=== PATIENT | male | born 1945 | race Hispanic/Latino ===

== ENCOUNTER 2016-05-12 11:10 | Outpatient (CLI) | payer MEDICARE ==
--- NOTE | 2016-05-12 14:40 | Ultrasound Report ---
RIGHT UPPER QUADRANT ULTRASOUND: HISTORY: . Technique: Transabdominal ultrasound imaging with Doppler interrogation. FINDINGS: The liver is normal size and contour. A bilobed cyst in the left hepatic lobe measures 2.4 x 1.5 x 1.3 cm. A second left hepatic lobe cyst measures 1.2 cm. A third right hepatic lobe cyst measures 1 cm. These findings appear unchanged since the MR abdomen dated 10/15/15. The gallbladder is sonolucent with no evidence of stones, polyps or wall thickening. The common duct is normal in caliber. Images of the pancreas, right kidney and aorta are within normal limits. No perihepatic ascites. IMPRESSION: 3 liver cysts are identified as outlined above which are unchanged since the previous MR abdomen dated 10/15/15.
== END 2016-05-12 11:11 | disposition home or self-care (01) ==
LOC: US 11:10
PROVIDERS: ATTEND Internal Medicine Gastroenterology
DX: K76.89 Other specified diseases of liver (principal)
CPT/HCPCS: 76705